=== PATIENT | female | born 1985 | race Caucasian/White ===

== ENCOUNTER 2018-06-01 18:21 | Emergency (ER) | payer BC, OTHER ==
[2018-06-01 18:37] VITALS: BP 106/55; PULSE 101; TEMP 97.9; BMI 27.4
--- NOTE | 2018-06-01 18:51 | PDOC ---
History of Present Illness - General Chief Complaint: Laceration Stated Complaint: LACERATION TO RT FINGER Past History - Past Medical History Allergies/Adverse Reactions: Allergies Allergy/AdvReac Type Severity Reaction Status Date / Time No Known Allergies Allergy Verified 08/23/11 10:46 Home Medications: Ambulatory Orders NK [No Known Home Medication] 06/01/18 COPD: No - Reproductive History Ectopic : No - Immunization History Immunization Up to Date: Yes - Suicide/Smoking/Psychosocial Hx Smoking Status: No Smoking History: Never smoked Number of Cigarettes Smoked Daily: 0 Hx Alcohol Use: No Drug/Substance Use Hx: No *Physical Exam - Vital Signs Last Vital Signs Temp Pulse Resp BP Pulse Ox 97.9 F 101 H 18 106/55 L 99 06/01/18 18:32 06/01/18 18:32 06/01/18 18:32 06/01/18 18:32 06/01/18 18:32 Moderate Sedation - Procedure Monitoring Vital Signs: Procedure Monitoring Vital Signs Temperature 97.9 F 06/01/18 18:32 Pulse Rate 101 H 06/01/18 18:32 Respiratory Rate 18 06/01/18 18:32 Blood Pressure 106/55 L 06/01/18 18:32 O2 Sat by Pulse Oximetry (%) 99 06/01/18 18:32 Procedures - Laceration/Wound Repair Right Finger 2nd digit Wound Length: to 2.5 cm Wound Explored: clean Wound's Depth, Shape: flap Irrigated w/ Saline: Yes Anesthesia: 1% Lidocaine Wound Repaired With: Sutures Suture Size/Type: 4:0 Number of Sutures: 6 (monocryl) Sterile Dressing Applied: Yes Progress: Patient tolerated procedure well 06/01/18 19:28 Medical Decision Making - Medical Decision Making Sutures applied to laceration on second digit of right hand (please see procedure section above) *DC/Admit/Observation/Transfer Diagnosis at time of Disposition: Laceration of finger of right hand Qualifiers: Encounter type: initial encounter Finger: ring finger Damage to nail status: without damage Foreign body presence: without foreign body Qualified Code(s): S61.214A - Laceration without foreign body of right ring finger without damage to nail, initial encounter - Discharge Dispostion Disposition: HOME Condition at time of disposition: Stable - Referrals Referrals: Raimundo Vann MD [Primary Care Provider] - - Patient Instructions Printed Discharge Instructions: DI for Laceration Repair Additional Instructions: Keep wound clean and dry Avoid strenuous activity/exercise to create a hot or sweaty environment until sutures are removed Reapply bacitracin ointment 2 times a day until sutures are removed Return to emergency Department or private physician in 7-10 days for suture removal May use Tylenol or Motrin for pain relief Return immediately to emergency department for redness, swelling, pain, or signs of infection - Post Discharge Activity
--- NOTE | 2018-06-01 19:32 | PDOC ---
History of Present Illness - General Chief Complaint: Laceration Stated Complaint: LACERATION TO RT FINGER Time Seen by Provider: 06/01/18 18:53 History Source: Patient Exam Limitations: No Limitations - History of Present Illness Initial Comments: 06/01/18 19:26 HISTORY OF PRESENT ILLNESS: 32-year-old right hand dominant female denies medical history presents emergency department for evaluation of laceration to her right ring finger while trying to open a bottle of wine. 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 Patient reports is up-to-date with her tetanus. No recent travel or sick contacts. PAST MEDICAL HISTORY: Denies past medical history SURGICAL HISTORY: Denies ALLERGIES: No known drug allergies REVIEW OF SYSTEMS General/Constitutional: Denies fever or chills. Denies weakness, weight change. HEENT: Denies change in vision. Denies ear pain or discharge. Denies sore throat. Cardiovascular: Denies chest pain or shortness of breath. Respiratory: Denies cough, wheezing, or hemoptysis. Gastrointestinal: Denies nausea, vomiting, diarrhea or constipation. Denies rectal bleeding. Genitourinary: Denies dysuria, frequency, or change in urination. Musculoskeletal: Denies joint or muscle swelling or pain. Denies neck or back pain. Skin and breasts:laceration to right ring finger Neurologic: Denies headache, vertigo, loss of consciousness, or loss of sensation. Psychiatric: Denies depression or anxiety. Endocrine: Denies increased thirst. Denies abnormal weight change. Hematologic/Lymphatic: Denies anemia, easy bleeding, or history of blood clots. Allergic/Immunologic: Denies hives or skin allergy. Denies latex allergy. PHYSICAL EXAM General Appearance: Well-appearing, appropriately dressed. No apparent distress , no intoxication. Musculoskeletal/Extremities: Normal inspection. FROM of all extremities, normal capillary refill. Pelvis Stable. No CVA tenderness. No tenderness to extremities, pedal edema, swelling, erythema or deformity. Integumentary: Approximate 1.5 cm linear laceration present to the dorsum of the middle phalanx of fourth digit of the right hand. Full range of motion against resistance noted Capillary refill less than 2 seconds Neurovascular intact Neurologic: lead tinner II-XII intact. Fully oriented, alert. Appropriate mood/affect. Motor strength 5/5. No appreciable EOM palsy, facial droop or sensory deficit. Past History - Past Medical History Allergies/Adverse Reactions: Allergies Allergy/AdvReac Type Severity Reaction Status Date / Time No Known Allergies Allergy Verified 08/23/11 10:46 Home Medications: Ambulatory Orders NK [No Known Home Medication] 06/01/18 COPD: No - Reproductive History Ectopic : No - Immunization History Immunization Up to Date: Yes - Suicide/Smoking/Psychosocial Hx Smoking Status: No Smoking History: Never smoked Number of Cigarettes Smoked Daily: 0 Hx Alcohol Use: No Drug/Substance Use Hx: No *Physical Exam - Vital Signs Last Vital Signs Temp Pulse Resp BP Pulse Ox 97.9 F 101 H 18 106/55 L 99 06/01/18 18:32 06/01/18 18:32 06/01/18 18:32 06/01/18 18:32 06/01/18 18:32 Moderate Sedation - Procedure Monitoring Vital Signs: Procedure Monitoring Vital Signs Temperature 97.9 F 06/01/18 18:32 Pulse Rate 101 H 06/01/18 18:32 Respiratory Rate 18 06/01/18 18:32 Blood Pressure 106/55 L 06/01/18 18:32 O2 Sat by Pulse Oximetry (%) 99 06/01/18 18:32 Medical Decision Making - Medical Decision Making 06/01/18 20:02 A/P: 32-year-old woman with laceration to fourth digit of right hand Approximate 1.5 cm linear laceration present to the dorsum of the mid phalanx of the fourth digit on the right hand. Full range of motion against resistance with both flexion and extension Capillary refill less than 2 seconds Neurovascular intact Tetanus is up-to-date Laceration repair-see procedure note of Dr. huerta for details. Discharge home *DC/Admit/Observation/Transfer Diagnosis at time of Disposition: Laceration of finger of right hand Qualifiers: Encounter type: initial encounter Finger: ring finger Damage to nail status: without damage Foreign body presence: without foreign body Qualified Code(s): S61.214A - Laceration without foreign body of right ring finger without damage to nail, initial encounter - Discharge Dispostion Disposition: HOME Condition at time of disposition: Stable Decision to Admit order: No - Referrals Referrals: Raimundo Vann MD [Primary Care Provider] - - Patient Instructions Printed Discharge Instructions: DI for Laceration Repair Additional Instructions: Keep wound clean and dry Avoid strenuous activity/exercise to create a hot or sweaty environment until sutures are removed Reapply bacitracin ointment 2 times a day until sutures are removed Return to emergency Department or private physician in 7-10 days for suture removal May use Tylenol or Motrin for pain relief Return immediately to emergency department for redness, swelling, pain, or signs of infection - Post Discharge Activity
== END 2018-06-01 19:35 | disposition home or self-care (01) ==
LOC: JERFT 18:21
PROC: 0HQFXZZ Repair Right Hand Skin, External Approach (ICD-10-PCS; principal; 2018-06-01)
DX: S61.214A Laceration without foreign body of right ring finger without damage to nail, initial encounter (principal); W26.0XXA Contact with knife, initial encounter; Y93.89 Activity, other specified; Y92.89 Other specified places as the place of occurrence of the external cause; Y99.8 Other external cause status
CPT/HCPCS: 99281-25